=== PATIENT | male | born 1950 | race Caucasian/White ===

== ENCOUNTER → 2016-06-19 | Outpatient (CLI) | payer OTHER | LOC: EMI 15:46 | DX: M25.561 Pain in right knee (principal); M25.562 Pain in left knee; M51.36 Other intervertebral disc degeneration, lumbar region; M99.04 Segmental and somatic dysfunction of sacral region; M47.816 Spondylosis without myelopathy or radiculopathy, lumbar region | CPT/HCPCS: 72148 ==

== ENCOUNTER → 2021-12-11 | Outpatient (CLI) | payer MEDICARE | LOC: HEART CORB 08:57 | DX: I25.10 Atherosclerotic heart disease of native coronary artery without angina pectoris (principal); R00.1 Bradycardia, unspecified; I48.0 Paroxysmal atrial fibrillation | CPT/HCPCS: 93306 ==